=== PATIENT | female | born 1945 | race Caucasian/White ===

== ENCOUNTER 2019-03-14 11:20 | Outpatient (REF) | payer MEDICARE, BC, SELFPAY ==
[2019-03-14 22:20] LABS: TSH (W/Ref FT4) 3.59 uIU/mL (0.358-3.74)
== END 2019-03-14 11:40 ==
LOC: NCHCN 11:20
PROVIDERS: PCP Internal Medicine; Visit Provider Internal Medicine
DX: E03.9 Hypothyroidism, unspecified (principal)
CPT/HCPCS: 84443

== ENCOUNTER 2019-05-07 13:52 | Outpatient (REF) | payer MEDICARE, BC, SELFPAY ==
[2019-05-07 23:34] LABS: Calculated LDL 167 mg/dL; Cholesterol 248 mg/dL (50-200); HDL Cholesterol 34 mg/dL (40-60); Triglyceride 236 mg/dL (30-150)
== END 2019-05-07 14:12 ==
LOC: NCHCN 13:52
PROVIDERS: PCP Internal Medicine; Visit Provider Internal Medicine
DX: E78.5 Hyperlipidemia, unspecified (principal)
CPT/HCPCS: 80061; 83721

== ENCOUNTER 2020-07-17 16:30 | Outpatient (REF) | payer MEDICARE, BC, SELFPAY ==
[2020-07-17 21:51] LABS: Calculated LDL 169 mg/dL (<100); Cholesterol 250 mg/dL (<200); Glucose 134 mg/dL (74-106); HDL Cholesterol 30 mg/dL (40-60); TSH 3.08 uIU/mL (0.36-3.74); Triglyceride 255 mg/dL (<150)
== END 2020-07-17 16:50 ==
LOC: NCHCN 16:30
PROVIDERS: PCP Internal Medicine; Visit Provider Nurse Practitioner Family
DX: E78.5 Hyperlipidemia, unspecified (principal); E03.9 Hypothyroidism, unspecified
CPT/HCPCS: 80061; 82947; 84443

== ENCOUNTER 2020-07-28 09:32 | Outpatient (REF) | payer MEDICARE, BC, SELFPAY ==
[2020-07-28 21:31] LABS: Calculated LDL 188 mg/dL (<100); Cholesterol 259 mg/dL (<200); HDL Cholesterol 35 mg/dL (40-60); Triglyceride 180 mg/dL (<150)
[2020-07-29 00:11] LABS: Hemoglobin A1C 5.4 % (<5.7)
== END 2020-07-28 09:52 ==
LOC: NCHCN 09:32
PROVIDERS: PCP Internal Medicine; Visit Provider Internal Medicine
DX: E78.5 Hyperlipidemia, unspecified (principal); R73.09 Other abnormal glucose
CPT/HCPCS: 80061; 83036

== ENCOUNTER 2021-10-21 09:16 | Outpatient (REF) | payer MEDICARE, BC, SELFPAY ==
[2021-10-21 14:00] LABS: Anion Gap 7.6 mmol/L (3-11); BUN 17 mg/dL (7-18); CO2 28.4 mmol/L (21.0-32.0); CREATININE 0.8 mg/dL (0.55-1.02); Calcium 8.8 mg/dL (8.5-10.1); Calculated LDL 97 mg/dL (<100); Chloride 106 mmol/L (98-107); Cholesterol 163 mg/dL (<200); Glucose 87 mg/dL (74-106); HDL Cholesterol 43 mg/dL (40-60); Potassium 3.7 mmol/L (3.5-5.1); Sodium 142 mmol/L (136-145); TSH 3.19 uIU/mL (0.36-3.74); Triglyceride 115 mg/dL (<150)
== END 2021-10-21 09:17 | disposition home or self-care (01) ==
LOC: NCHCN 09:16
PROVIDERS: PCP Internal Medicine; Visit Provider Internal Medicine
DX: E03.9 Hypothyroidism, unspecified (principal); E78.5 Hyperlipidemia, unspecified
CPT/HCPCS: 80048; 80061; 84443

== ENCOUNTER 2022-10-08 11:36 | Outpatient (REF) | payer MEDICARE, BC, SELFPAY ==
[2022-10-08 15:33] LABS: TSH 2.61 uIU/mL (0.36-3.74); Vitamin B12 221 pg/mL (193-986)
== END 2022-10-08 11:37 | disposition home or self-care (01) ==
LOC: NCHCN 11:36
PROVIDERS: PCP Internal Medicine; Visit Provider Internal Medicine
DX: R27.8 Other lack of coordination (principal); E03.9 Hypothyroidism, unspecified
CPT/HCPCS: 82607; 84443

== ENCOUNTER 2022-11-03 10:23 | Outpatient (REF) | payer MEDICARE, BC, SELFPAY ==
[2022-11-03 14:15] LABS: Anion Gap 7.6 mmol/L (3-11); BUN 17 mg/dL (7-18); CO2 28.4 mmol/L (21.0-32.0); CREATININE 0.7 mg/dL (0.55-1.02); Calcium 8.8 mg/dL (8.5-10.1); Calculated LDL 78 mg/dL (<100); Chloride 105 mmol/L (98-107); Cholesterol 147 mg/dL (<200); Estimated GFR 87.92 (mL/min/1.73m2); Glucose 90 mg/dL (74-106); HDL Cholesterol 43 mg/dL (40-60); Potassium 4.1 mmol/L (3.5-5.1); Sodium 141 mmol/L (136-145); Triglyceride 134 mg/dL (<150)
== END 2022-11-03 10:24 | disposition home or self-care (01) ==
LOC: NCHCN 10:23
PROVIDERS: PCP Internal Medicine; Visit Provider Internal Medicine
DX: E78.5 Hyperlipidemia, unspecified (principal); E03.9 Hypothyroidism, unspecified
CPT/HCPCS: 80048; 80061

== ENCOUNTER 2023-10-17 14:51 | Outpatient (REF) | payer MEDICARE, BC, SELFPAY ==
[2023-10-17 15:37] LABS: ALT 25 U/L (14-59); AST 24 U/L (15-37); Albumin 3.6 g/dL (3.4-5.0); Alkaline Phosphatase 116 U/L (46-116); Anion Gap 8.3 mmol/L (3-11); BUN 17 mg/dL (7-18); Bilirubin, Total 0.8 mg/dL (0.2-1.0); CO2 26.7 mmol/L (21.0-32.0); CREATININE 0.9 mg/dL (0.55-1.02); Calcium 9.3 mg/dL (8.5-10.1); Calculated LDL 79 mg/dL (<100); Chloride 106 mmol/L (98-107); Cholesterol 143 mg/dL (<200); Estimated GFR 64.63 (mL/min/1.73m2); Glucose 95 mg/dL (74-106); HDL Cholesterol 42 mg/dL (40-60); Potassium 3.9 mmol/L (3.5-5.1); Sodium 141 mmol/L (136-145); TSH (W/Ref FT4) 3.49 uIU/mL (0.36-3.74); Total Protein 7.1 g/dL (6.4-8.2); Triglyceride 112 mg/dL (<150)
== END 2023-10-17 14:52 | disposition home or self-care (01) ==
LOC: NCHCN 14:51
PROVIDERS: PCP Internal Medicine; Visit Provider Family Medicine
DX: E03.9 Hypothyroidism, unspecified (principal); Z00.00 Encounter for general adult medical examination without abnormal findings
CPT/HCPCS: 80053; 80061; 84443

== ENCOUNTER 2024-10-10 11:49 | Outpatient (REF) | payer MEDICARE, BC, SELFPAY ==
[2024-10-10 15:11] LABS: Anion Gap 7.5 mmol/L (3-11); BUN 17 mg/dL (7-18); CO2 26.5 mmol/L (21.0-32.0); Calcium 8.7 mg/dL (8.5-10.1); Calculated LDL 78 mg/dL (<100); Chloride 108 mmol/L (98-107); Cholesterol 145 mg/dL (<200); Glucose 136 mg/dL (74-106); HDL Cholesterol 41 mg/dL (40-60); Potassium 3.6 mmol/L (3.5-5.1); Sodium 142 mmol/L (136-145); TSH (W/Ref FT4) 3.19 uIU/mL (0.36-3.74); Triglyceride 130 mg/dL (<150)
== END 2024-10-10 11:50 | disposition home or self-care (01) ==
LOC: NCHCN 11:49
PROVIDERS: PCP Internal Medicine; Visit Provider Family Medicine
DX: E03.9 Hypothyroidism, unspecified (principal)
CPT/HCPCS: 80048; 80061; 84443

== ENCOUNTER 2025-08-15 20:25 | Outpatient (REF) | payer MEDICARE, BC, SELFPAY ==
[2025-08-15 21:17] LABS: ALT 33 U/L (14-59); AST 26 U/L (15-37); Albumin 3.7 g/dL (3.4-5.0); Alkaline Phosphatase 136 U/L (46-116); Anion Gap 12.3 mmol/L (3-11); BUN 21 mg/dL (7-18); Bilirubin, Total 0.4 mg/dL (0.2-1.0); CO2 23.7 mmol/L (21.0-32.0); Calcium 8.5 mg/dL (8.5-10.1); Chloride 104 mmol/L (98-107); Estimated GFR 86.30 (mL/min/1.73m2); Glucose 126 mg/dL (74-106); Potassium 3.6 mmol/L (3.5-5.1); Sodium 140 mmol/L (136-145); Total Protein 7.0 g/dL (6.4-8.2)
[2025-08-15 21:54] LABS: COMMENT (LAB VIEW ONLY) 139.86 mg/dL; Microalb ug/mg Crea 11.2 ug/mg Cr
== END 2025-08-15 20:26 | disposition home or self-care (01) ==
LOC: NCHCN 20:25
PROVIDERS: PCP Internal Medicine; Visit Provider Family Medicine
DX: I10 Essential (primary) hypertension (principal)
CPT/HCPCS: 80053; 82043; 82570

== ENCOUNTER 2025-10-07 13:18 | Outpatient (REF) | payer MEDICARE, BC, SELFPAY ==
[2025-10-07 15:25] LABS: Hemoglobin A1C 5.3 % (<5.7)
[2025-10-07 15:27] LABS: TSH (W/Ref FT4) 3.84 uIU/mL (0.55-4.78)
== END 2025-10-07 13:19 | disposition home or self-care (01) ==
LOC: NCHCN 13:18
PROVIDERS: PCP Internal Medicine; Visit Provider Family Medicine
DX: R73.9 Hyperglycemia, unspecified (principal); E03.9 Hypothyroidism, unspecified
CPT/HCPCS: 83036; 84443